=== PATIENT | male | born 1995 | race Caucasian/White ===

== ENCOUNTER 2022-06-28 08:15 | Outpatient (CLI) | payer OTHER, SELFPAY ==
[2022-06-28 14:00] LABS: Chloride* 106 mmol/L (96-114)
[2022-06-28 14:01] LABS: Sodium* 141 mmol/L (135-149)
[2022-06-28 14:03] LABS: Cholesterol* 153 mg/dL (90-199); Creatinine* 0.8 mg/dL (0.5-1.5); Estimated Glomerular Filt Rate 124 ml/min
[2022-06-28 14:04] LABS: Blood Urea Nitrogen* 13 mg/dL (5-24); Calcium* 9.3 mg/dL (8.4-10.6); Carbon Dioxide* 31 mmol/L (20-32); Glucose* 105 mg/dL (60-115); Triglycerides* 53 mg/dL (40-149)
[2022-06-28 14:05] LABS: HDL Cholesterol* 55 mg/dL (>=40); LDL Cholesterol Calculated 87 mg/dL (<100)
[2022-06-28 14:55] LABS: Potassium* 4.2 mmol/L (3.6-5.1)
== END 2022-06-28 08:16 | disposition home or self-care (01) ==
LOC: LKVREF 08:16
PROVIDERS: PCP Family Medicine; Visit Provider Emergency Medicine
DX: Z00.00 Encounter for general adult medical examination without abnormal findings (principal); Z13.6 Encounter for screening for cardiovascular disorders
CPT/HCPCS: 80048; 80061